=== PATIENT | female | born 1980 | race American Indian/Alaskan Native ===

== ENCOUNTER 2017-03-13 19:09 | Emergency (ER) | payer OTHER ==
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
[2017-03-14] MEDS ORDERED: MOTRIN PO ONE (01:23)
[2017-03-14 02:00] VITALS: BP 143/89
== END 2017-03-14 01:35 | disposition home or self-care (01) ==
LOC: ED 19:09
DX: S39.012A Strain of muscle, fascia and tendon of lower back, initial encounter (principal); V49.49XA Driver injured in collision with other motor vehicles in traffic accident, initial encounter; F17.200 Nicotine dependence, unspecified, uncomplicated; Y93.9 Activity, unspecified; Y92.9 Unspecified place or not applicable; Y99.9 Unspecified external cause status
CPT/HCPCS: 99282